=== PATIENT | male | born 1980 ===

== ENCOUNTER 2018-01-22 08:02 | Day surgery (SDC) | payer OTHER ==
[2018-01-17 08:16] VITALS: BMI 24.7
[2018-01-22] MEDS: Bupivacaine 0.25% Inj(30mL) ONE ×7 (09:09→12:32)
[2018-01-22] MEDS: ceFAZolin 1 gm in NS 2 GM/200 ML BAG IVPB ONE ×2 (09:09→10:10)
[2018-01-22] MEDS: Lidocaine/Epinephrine 1% 1:100000 10 ML IJ ONE ×2 (09:09→10:18)
[2018-01-22] MEDS ORDERED: Midazolam 2 MG/2 ML VIAL ONE (09:41)
[2018-01-22] MEDS ORDERED: Propofol 10 mg/ml Inj (20 ML) ONE (09:41)
[2018-01-22] MEDS ORDERED: Rocuronium 10 mg/ml (5 ml) ONE ×2 (09:44→10:37)
[2018-01-22] MEDS ORDERED: ceFAZolin 1 gm in NS 1 GM/100 ML BAG IVPB ONE (10:15)
[2018-01-22] MEDS ORDERED: Neostigmine Methylsulfate 3mg/3ml Syringe IV ONE (11:57)
[2018-01-22] MEDS ORDERED: Oxycodone/Acetaminophen 5/325 mg Tab PO PRN (13:02)
--- NOTE | 2018-01-22 13:10 | PCM.SURG1 ---
Surgeon's Initial Post Op Note - Surgeon's Notes Surgeon: Dr. Rodriguez Process Analyst: Katelin Blanca PGY2, Lacy BENNETT Type of Anesthesia: General Endo Pre-Operative Diagnosis: left inguinal hernia, possible bilateral inguinal hernia Operative Findings: bilateral inguinal hernias and cord lipomas. RLQ adhesions Post-Operative Diagnosis: bilateral inguinal hernias Operation Performed: Robotic assisted laparoscopic extensive lysis of adhesions , Bilateral inguinal hernia repair with mesh Specimen/Specimens Removed: Bilateral cord lipomas Estimated Blood Loss: EBL {In ML}: 10 Blood Products Given: N/A Drains Used: No Drains Post-Op Condition: Fair Date of Surgery/Procedure: 01/22/18 Time of Surgery/Procedure: 09:00
[2018-01-22] MEDS: HYDROmorphone 0.5 mg/0.5 ml ISec IVP PRN ×2 (13:46→14:25)
[2018-01-22 15:15] VITALS: O2SAT 98
[2018-01-22 19:03] VITALS: BP 109/72; PULSE 102; RESP 18; TEMP 98.2
--- NOTE | 2018-01-23 04:05 | OP ---
PROCEDURE DATE: 01/22/2018 PREOPERATIVE DIAGNOSIS: Left inguinal hernia, possible bilateral inguinal hernia. POSTOPERATIVE DIAGNOSES: 1. Left indirect inguinal hernia. 2. Left lipoma of the spermatic cord. 3. Postoperative adhesion due to previous open appendectomy. 4. Right indirect inguinal hernia. 5. Right lipoma of the spermatic cord. PROCEDURES: 1. Robotic left inguinal hernia repair with a mesh. 2. Robotic excision of lipoma of the left spermatic cord. 3. Robotic right inguinal hernia repair with a mesh. 4. Robotic excision of lipoma of the right spermatic cord. 5. Laparoscopic bilateral TAP block placement. 6. Robotic extensive lysis of adhesions due to previous postoperative adhesion. SURGEON: Jan Muro MD LAY UP OPERATOR: DONALD Umana and Katelin Blanca, PGY-2 resident. ANESTHESIA: General endotracheal tube anesthesia. ESTIMATED BLOOD LOSS: Around 10 mL. DRAINS: None. PATHOLOGY: 1. Lipoma of the left spermatic cord. 2. Lipoma of the right spermatic cord was sent for the pathology. COMPLICATIONS: None. INTRAOPERATIVE FINDINGS: The patient had left indirect inguinal hernia as well as a large lipoma of the cord and the patient also had right indirect inguinal hernia with large lipoma of the cord and the patient also had extensive postoperative adhesion in the right lower quadrant due to previous open appendectomy. DESCRIPTION OF PROCEDURE: On intraoperative steps, this 37-year-old male who was diagnosed with left inguinal hernia on the CAT scan and the patient was complaining of left groin pain and sometimes right groin pain and the patient was consented for laparoscopic assisted robotic left inguinal hernia repair with mesh as well as possible bilateral. The patient was brought to the OR, placed supine on the operating table. After induction of anesthesia, the abdomen was prepped and draped in the usual sterile fashion. The supraumbilical transverse incision was made after incising skin, subcutaneous tissue and the fascia. The robotic camera port was placed. Pneumo was created. Another *------* 8-mm robotic port was placed and robot was brought in, camera arm, as well as arm 1 and arm 2 was docked and first pelvis was examined. The patient had left inguinal hernia with lipoma of the cord, and the patient also had right inguinal hernia defect with lipoma of the cord. Hence, decision was made to do bilateral inguinal hernia repair. The incision was made from the left ASIS up to the right ASIS and dissection was carried down in the midline up to the space of Retzius. First, the right side dissection was done and the peritoneum was from the abdominal wall on the lateral side. Spermatic cord vessel as well as vas deferens was identified and the hernial sac was reduced and large lipoma of the cord was reduced back and was excised and it was sent off the table for pathology. Now, the inferior dissection was done up to the vas deferens level and now the left side dissection was done. The peritoneum was from the lateral abdominal wall and vas deferens and spermatic cord vessel was dissected. The sac was reduced. The large lipoma of the cord was reduced and it was excised and it was sent off the table for the pathology. An inferior dissection was done up to the pelvic brim and the vas deferens and now the right and left anatomical mesh was placed, first left anatomical mesh implanted. After that a right anatomical mesh was implanted and after proper implantation of the mesh, the peritoneum was sutured with a 2-0 Vicryl as well as 3-0 Vicryl continuous sutures and the procedure was converted to laparoscopic and bilateral TAP block was given. Initially, during the initial part of the operation, the patient had extensive postoperative adhesion in the right lower quadrant and first extensive lysis of adhesion was done in order to enter the pelvis and after bilateral TAP block given properly, all the port was taken out under vision. Pneumo was deflated. Umbilical port site was closed in 2 layer, the fascia with 0 Vicryl interrupted suture, skin with 4-0 Monocryl and dry sterile dressing was applied. The patient tolerated the procedure well. Count of instrument and gauze was correct. There were no apparent complications. The patient was extubated in OR, sent to the postanesthesia care unit in stable condition. Jan Muro MD
== END 2018-01-22 19:02 | disposition home or self-care (01) ==
LOC: C.SDS 08:02
PROVIDERS: ATTEND Surgery Surgical Critical Care
DX: D17.6 Benign lipomatous neoplasm of spermatic cord (principal); K40.20 Bilateral inguinal hernia, without obstruction or gangrene, not specified as recurrent; K66.0 Peritoneal adhesions (postprocedural) (postinfection)
CPT/HCPCS: 49329; 49505; 55520; 88304; C1781; J0690; J1170; J2001; J2250; J2405; J2704; J2710; J3010